=== PATIENT | male | born 1955 | race Caucasian/White ===

== ENCOUNTER 2017-09-24 14:57 | Outpatient (CLI) | payer BC | END 2017-09-24 16:43 | disposition home or self-care (01) | LOC: DCC 14:57 | DX: L03.115 Cellulitis of right lower limb (principal); D64.9 Anemia, unspecified; N28.9 Disorder of kidney and ureter, unspecified; G62.9 Polyneuropathy, unspecified; E11.8 Type 2 diabetes mellitus with unspecified complications | CPT/HCPCS: G0463 ==

== ENCOUNTER → 2017-10-08 | Outpatient (CLI) | payer BC | END | disposition home or self-care (01) | LOC: DCC 14:20 | DX: L03.115 Cellulitis of right lower limb (principal); D64.9 Anemia, unspecified; N28.9 Disorder of kidney and ureter, unspecified; I10 Essential (primary) hypertension; G57.90 Unspecified mononeuropathy of unspecified lower limb ==

== ENCOUNTER 2017-10-17 16:05 | Emergency (ER) | payer BC ==
[2017-10-17] MEDS: CLINDAMYCIN 900 MG/D5W (PMX) 50 ML IVPB (18:21)
== END 2017-10-17 19:12 | disposition home or self-care (01) ==
LOC: FTE 16:05
DX: Z48.01 Encounter for change or removal of surgical wound dressing (principal)
CPT/HCPCS: 96374; 99284-25

== ENCOUNTER 2017-12-15 14:14 | Inpatient (IN) | payer BC ==
[2017-12-15 17:42] LABS: ADD MAN DIFF? NO
[2017-12-15 17:47] LABS: WHITE BLOOD COUNT 9.1 10^3/ul (4.8-10.8)
[2017-12-15 17:47] LABS: BASOPHILS % 0.4 % (0.0-2.0); EOSINOPHILS # 0.1 10^3/ul (0.0-0.5); EOSINOPHILS % 1.3 % (0.0-7.0); HEMATOCRIT 44.3 % (42.0-52.0); HEMOGLOBIN 14.5 g/dl (14.0-18.0); LYMPHOCYTES # 1.8 10^3/ul (0.8-2.9); LYMPHOCYTES % 19.4 % (15.0-51.0); MEAN CORPUSCULAR HEMOGLOBIN 29.9 pg (29.0-33.0); MEAN CORPUSCULAR HGB CONC 32.7 g/dl (32.0-37.0); MEAN CORPUSCULAR VOLUME 91.3 fl (82.0-101.0); MEAN PLATELET VOLUME 9.5 fl (7.4-10.4); MONOCYTE # 0.8 10^3/ul (0.3-0.9); MONOCYTES % 8.4 % (0.0-11.0); NEUTROPHIL # 6.4 10^3/ul (1.6-7.5); NEUTROPHILS % 70.1 % (39.0-77.0); PLATELET COUNT 222 10^3/UL (140-415); RED BLOOD COUNT 4.85 10^6/ul (4.70-6.10); RED CELL DISTRIBUTION WIDTH 14.1 % (11.5-14.5)
[2017-12-15] MEDS: CEFEPIME 2GM/50 ML (PMX) 50 ML IVPB (17:55)
[2017-12-15] MEDS: SOD CHLORIDE 0.9% 1,000 ML IV (17:55)
[2017-12-15 18:06] LABS: INR 0.93; PROTIME 12.6 Sec (11.9-14.9)
[2017-12-15 18:07] LABS: PARTIAL THROMBOPLASTIN TIME 29.7 Sec (25.0-35.0)
[2017-12-15 18:10] LABS: LACTIC ACID 2.3 mmol/L (0.5-2.0)
[2017-12-15 18:12] LABS: ALANINE AMINOTRANSFERASE 21 IU/L (13-69); ALBUMIN 4.7 g/dl (3.3-4.9); ALBUMIN/GLOBULIN RATIO 1.27; ALKALINE PHOSPHATASE 94 IU/L (42-121); ANION GAP 15 (8-16); ASPARTATE AMINO TRANSFERASE 36 IU/L (15-46); BILIRUBIN,INDIRECT 0.3 mg/dl (0-1.1); BILIRUBIN,TOTAL 0.3 mg/dl (0.2-1.3); BLOOD UREA NITROGEN 18 mg/dl (7-20); C-REACTIVE PROTEIN 2.1 mg/dl (0.0-0.9); CALCIUM 9.8 mg/dl (8.4-10.2); CARBON DIOXIDE 30 mmol/L (21-31); CHLORIDE 96 mmol/L (97-110); CREATININE 1.04 mg/dl (0.61-1.24); GLUCOSE 109 mg/dl (70-220); POTASSIUM 3.8 mmol/L (3.5-5.1); SODIUM 137 mmol/L (135-144); TOTAL PROTEIN 8.4 g/dl (6.1-8.1)
[2017-12-15] MEDS: VANCOMYCIN 1 GM (PMX) 250 ML IVPB (18:33)
[2017-12-15 18:57] LABS: ERYTHROCYTE SEDIMENTATION RATE 15 mm/Hr (0-20)
[2017-12-15] MEDS: morphine 4 MG/ML VIAL IV (19:14)
[2017-12-15] MEDS: ONDANSETRON 4 MG INJ IV (19:14)
[2017-12-15] MEDS ORDERED: ONDANSETRON 4 MG INJ IV (19:30)
[2017-12-15] MEDS ORDERED: NACL 0.9% 3 ML SYG IV (19:30)
[2017-12-15] MEDS ORDERED: ACETAMINOPHEN 325 MG TAB PO (19:30)
[2017-12-15] MEDS: ZOLPIDEM 5 MG TAB PO (22:14)
[2017-12-15] MEDS: morphine 2 MG INJ IV (23:13)
[2017-12-15 23:42] LABS: LACTIC ACID 1.2 mmol/L (0.5-2.0)
[2017-12-16] MEDS: morphine 2 MG INJ IV ×4 (03:13→18:25)
[2017-12-16 08:37] LABS: ADD MAN DIFF? NO
[2017-12-16 08:40] LABS: WHITE BLOOD COUNT 7.8 10^3/ul (4.8-10.8)
[2017-12-16 08:40] LABS: BASOPHILS % 0.5 % (0.0-2.0); EOSINOPHILS # 0.2 10^3/ul (0.0-0.5); EOSINOPHILS % 2.1 % (0.0-7.0); HEMATOCRIT 43.8 % (42.0-52.0); HEMOGLOBIN 14.3 g/dl (14.0-18.0); LYMPHOCYTES # 1.7 10^3/ul (0.8-2.9); MEAN CORPUSCULAR HEMOGLOBIN 30.2 pg (29.0-33.0); MEAN CORPUSCULAR HGB CONC 32.6 g/dl (32.0-37.0); MEAN CORPUSCULAR VOLUME 92.6 fl (82.0-101.0); MEAN PLATELET VOLUME 9.7 fl (7.4-10.4); MONOCYTE # 0.7 10^3/ul (0.3-0.9); MONOCYTES % 8.4 % (0.0-11.0); NEUTROPHIL # 5.2 10^3/ul (1.6-7.5); NEUTROPHILS % 66.4 % (39.0-77.0); PLATELET COUNT 216 10^3/UL (140-415); RED BLOOD COUNT 4.73 10^6/ul (4.70-6.10); RED CELL DISTRIBUTION WIDTH 13.9 % (11.5-14.5)
[2017-12-16 09:16] LABS: LACTIC ACID 1.1 mmol/L (0.5-2.0)
[2017-12-16 09:26] LABS: HEMOGLOBIN A1C 5.6 % (0-5.9)
[2017-12-16] MEDS ORDERED: VANCOMYCIN IV PER PHARMACY XX (15:00)
[2017-12-16] MEDS: PIPER-TAZO 3.375 GM IV (PMX) 100 ML IVPB ×2 (16:59→22:43)
[2017-12-16] MEDS ORDERED: PIPER-TAZO 3.375 GM IV (PMX) 100 ML IVPB (18:00)
[2017-12-16] MEDS: VANCOMYCIN 1.5 GM in SOD CHLORIDE 0.9% 250 ML IVPB (18:28)
[2017-12-16] MEDS: ZOLPIDEM 5 MG TAB PO (20:13)
[2017-12-17] MEDS: morphine 2 MG INJ IV ×2 (03:00→12:04)
[2017-12-17] MEDS: PIPER-TAZO 3.375 GM IV (PMX) 100 ML IVPB ×2 (06:06→13:43)
[2017-12-17] MEDS: VANCOMYCIN 1.25 GM in SOD CHLORIDE 0.9% 250 ML IVPB (06:47)
[2017-12-17 07:40] LABS: CREATININE 1.03 mg/dl (0.61-1.24)
[2017-12-17 07:40] LABS: BLOOD UREA NITROGEN 14 mg/dl (7-20)
[2017-12-17] MEDS: HYDROCODONE/APAP (5/325) TAB PO (13:42)
[2017-12-17] MEDS ORDERED: morphine LIQ (10 MG/5 ML) CUP PO (14:30)
== END 2017-12-17 15:25 | disposition home or self-care (01) | DRG 593 ==
LOC: E/R 14:14 → 2NE 19:09
DX: L97.519 Non-pressure chronic ulcer of other part of right foot with unspecified severity (principal); L02.611 Cutaneous abscess of right foot; G60.9 Hereditary and idiopathic neuropathy, unspecified; M19.071 Primary osteoarthritis, right ankle and foot
CPT/HCPCS: 36415; 73630; 73718; 80053; 82565; 83036; 83605; 84520; 85025; 85610; 85651; 85730; 86140; 87040; 93005; 96374; 96375; 99285-25

== ENCOUNTER 2018-02-14 14:49 | Day surgery (SDC) | payer BC ==
[~2018-02-14 14:49] MED LIST: CEFAZOLIN 1 GM INJ
[2018-02-14] MEDS ORDERED: ONDANSETRON 4 MG INJ (16:50)
[2018-02-14] MEDS ORDERED: PROPOFOL 20 ML (16:50)
[2018-02-14] MEDS ORDERED: FENTAnyl 50 MCG/ML VIAL ×2 (16:50→18:17)
[2018-02-14] MEDS ORDERED: MIDAZOLAM 1 MG/ML 2 ML INJ (16:50)
[2018-02-14] MEDS ORDERED: ACETAMINOPHEN 1000MG/100ML IV 100 ML (16:50)
[2018-02-14] MEDS ORDERED: METOCLOPRAMIDE 10 MG INJ (16:50)
[2018-02-14] MEDS ORDERED: KETOROLAC 30 MG INJ (16:50)
[2018-02-14] MEDS: CEFAZOLIN SODIUM 2GM/D5W 50 X1 IVPB (17:01)
[2018-02-14] MEDS: BUPIVACAINE 0.5% (SDV) 30 ML INJ (17:24)
[2018-02-14] MEDS: POLYMYXIN/BACITRACIN 1L IRRIG (17:24)
[2018-02-14] MEDS: FENTAnyl 50 MCG/ML VIAL IV (18:21)
[2018-02-14] MEDS ORDERED: ONDANSETRON 4 MG INJ IV (18:30)
[2018-02-14] MEDS ORDERED: HYDROmorphONE 1 MG/5 ML IV SYRINGE IV ×2 (18:30)
[2018-02-14] MEDS ORDERED: FENTAnyl 50 MCG/ML VIAL IV (18:30)
[2018-02-14] MEDS ORDERED: hydrALAzine 20 MG INJ IV (20:00)
== END 2018-02-14 19:12 | disposition home or self-care (01) ==
LOC: SDS 14:49
DX: L90.5 Scar conditions and fibrosis of skin (principal); L97.519 Non-pressure chronic ulcer of other part of right foot with unspecified severity
CPT/HCPCS: 11426; 88307

== ENCOUNTER 2018-02-15 18:57 | Emergency (ER) | payer SELFPAY, BC | END 2018-02-15 19:50 | disposition left against medical advice (07) | LOC: FTE 19:50 | DX: Z53.21 Procedure and treatment not carried out due to patient leaving prior to being seen by health care provider (principal) ==

== ENCOUNTER 2018-03-08 14:08 | Day surgery (SDC) | payer BC ==
[2018-03-08 15:18] LABS: ADD MAN DIFF? NO
[2018-03-08 15:20] LABS: BASOPHILS % 0.4 % (0.0-2.0); EOSINOPHILS # 0.1 10^3/ul (0.0-0.5); EOSINOPHILS % 0.8 % (0.0-7.0); HEMATOCRIT 42.5 % (42.0-52.0); HEMOGLOBIN 14.4 g/dl (14.0-18.0); LYMPHOCYTES # 1.7 10^3/ul (0.8-2.9); LYMPHOCYTES % 15.1 % (15.0-51.0); MEAN CORPUSCULAR HEMOGLOBIN 31.1 pg (29.0-33.0); MEAN CORPUSCULAR HGB CONC 33.9 g/dl (32.0-37.0); MEAN CORPUSCULAR VOLUME 91.8 fl (82.0-101.0); MEAN PLATELET VOLUME 9.4 fl (7.4-10.4); MONOCYTE # 0.8 10^3/ul (0.3-0.9); MONOCYTES % 7.2 % (0.0-11.0); NEUTROPHIL # 8.4 10^3/ul (1.6-7.5); PLATELET COUNT 250 10^3/UL (140-415); RED BLOOD COUNT 4.63 10^6/ul (4.70-6.10); RED CELL DISTRIBUTION WIDTH 12.9 % (11.5-14.5)
[2018-03-08 15:20] LABS: WHITE BLOOD COUNT 11.1 10^3/ul (4.8-10.8)
[2018-03-08 15:26] LABS: ADD UMIC NO; UR ASCORBIC ACID NEGATIVE (NEGATIVE); UR BILIRUBIN (Dip) NEGATIVE (NEGATIVE); UR BLOOD (Dip) NEGATIVE (NEGATIVE); UR CLARITY CLEAR (CLEAR); UR COLOR YELLOW (YELLOW); UR GLUCOSE (Dip) NEGATIVE (NEGATIVE); UR KETONES (Dip) NEGATIVE (NEGATIVE); UR LEUKOCYTE ESTERASE (Dip) NEGATIVE Leu/ul (NEGATIVE); UR NITRITE (Dip) NEGATIVE (NEGATIVE); UR SPECIFIC GRAVITY (Dip) 1.017 (1.003-1.030); UR TOTAL PROTEIN (Dip) NEGATIVE (NEGATIVE); UR UROBILINOGEN (Dip) NEGATIVE (NEGATIVE)
[2018-03-08 15:42] LABS: INR 0.95; PROTIME 12.8 Sec (11.9-14.9)
[2018-03-08 15:43] LABS: PARTIAL THROMBOPLASTIN TIME 29.4 Sec (23.0-35.0)
[2018-03-08 15:44] LABS: ANION GAP 10 (5-13); BLOOD UREA NITROGEN 16 mg/dl (7-20); CALCIUM 9.5 mg/dl (8.4-10.2); CARBON DIOXIDE 30 mmol/L (21-31); CHLORIDE 97 mmol/L (97-110); CREATININE 0.94 mg/dl (0.61-1.24); Estimated GFR > 60 mL/min (>60); GLUCOSE 113 mg/dl (70-220); POTASSIUM 3.9 mmol/L (3.5-5.1); SODIUM 137 mmol/L (135-144)
[2018-03-08] MEDS ORDERED: ONDANSETRON 4 MG INJ (16:24)
[2018-03-08] MEDS ORDERED: MIDAZOLAM 1 MG/ML 2 ML INJ (16:24)
[2018-03-08] MEDS ORDERED: FENTAnyl 50 MCG/ML VIAL (16:24)
[2018-03-08] MEDS ORDERED: PROPOFOL 20 ML (16:24)
[2018-03-08] MEDS ORDERED: KETOROLAC 30 MG INJ (16:24)
[2018-03-08] MEDS ORDERED: LABETALOL HCL 20MG INJ IV (16:30)
[2018-03-08] MEDS ORDERED: HYDROmorphONE 1 MG/5 ML IV SYRINGE IV ×3 (16:30)
[2018-03-08] MEDS ORDERED: TRIMETHOBENZAMIDE 100 MG/ML VIAL IM (16:30)
[2018-03-08] MEDS ORDERED: MEPERIDINE 25 MG INJ IV (16:30)
[2018-03-08] MEDS ORDERED: CEFAZOLIN 2 GM/50 ML (PMX) 50 ML IVPB (16:30)
[2018-03-08] MEDS ORDERED: DIPHENHYDRAMINE 50 MG INJ IV (16:30)
[2018-03-08] MEDS ORDERED: FENTAnyl 50 MCG/ML VIAL IV ×2 (16:30)
[2018-03-08] MEDS ORDERED: EPHEDrine SULFATE 50 MG/5 ML SYG IV (16:30)
[2018-03-08] MEDS ORDERED: hydrALAzine 20 MG INJ IV (16:30)
[2018-03-08] MEDS ORDERED: ALBUTEROL 0.083% (NEB) 2.5 MG/3 ML AMP HHN (16:30)
[2018-03-08] MEDS ORDERED: MIDAZOLAM 1 MG/ML 2 ML INJ IV (16:30)
[2018-03-08] MEDS ORDERED: IPRATROPIUM (NEB) 0.5 MG/2.5 ML AMP HHN (16:30)
[2018-03-08] MEDS ORDERED: OXYCODONE/ACETAMINOPHEN (5/325) TAB PO (16:30)
[2018-03-08] MEDS ORDERED: KETAMINE (50 MG/ML) 10 ML VIAL (16:51)
[2018-03-08] MEDS: BUPIVACAINE 0.5% (SDV) 30 ML INJ (16:55)
[2018-03-08] MEDS: LIDOCAINE 2% (MDV) 20 ML INJ (16:55)
[2018-03-08] MEDS: POLYMYXIN/BACITRACIN 1L IRRIG (16:55)
[2018-03-08] MEDS ORDERED: hydrALAzine 20 MG INJ (17:08)
[2018-03-08] MEDS: OXYCODONE/ACETAMINOPHEN (5/325) TAB PO (18:10)
== END 2018-03-08 18:38 | disposition home or self-care (01) ==
LOC: SDS 14:08
DX: T81.30XD Disruption of wound, unspecified, subsequent encounter (principal); L97.519 Non-pressure chronic ulcer of other part of right foot with unspecified severity; Y83.9 Surgical procedure, unspecified as the cause of abnormal reaction of the patient, or of later complication, without mention of misadventure at the time of the procedure; I10 Essential (primary) hypertension; E11.40 Type 2 diabetes mellitus with diabetic neuropathy, unspecified
CPT/HCPCS: 11042; 80048; 81003; 85025; 85610; 85730; 87070; 87075; 87102; 88304; 93005

== ENCOUNTER 2018-04-14 14:23 | Inpatient (IN) | payer BC ==
[~2018-04-14 14:23] MED LIST changes: -CEFAZOLIN 1 GM INJ; +VANCOMYCIN 1.25 GM in SOD CHLORIDE 0.9% 250 ML IVPB
[2018-04-14 15:02] LABS: ADD MAN DIFF? NO
[2018-04-14] MEDS: HYDROmorphONE 1 MG/ML SYG IV (15:05)
[2018-04-14] MEDS: ONDANSETRON 4 MG INJ IV (15:05)
[2018-04-14] MEDS: PIPER-TAZO 3.375 GM IV (PMX) 100 ML IVPB ×2 (15:05→20:04)
[2018-04-14] MEDS: SODIUM CHLORIDE 0.9% 1L BAG IV* (15:06)
[2018-04-14 15:18] LABS: BASOPHILS % 0.4 % (0.0-2.0); EOSINOPHILS # 0.2 10^3/ul (0.0-0.5); EOSINOPHILS % 1.9 % (0.0-7.0); HEMATOCRIT 40.8 % (42.0-52.0); HEMOGLOBIN 13.2 g/dl (14.0-18.0); LYMPHOCYTES # 1.6 10^3/ul (0.8-2.9); LYMPHOCYTES % 17.4 % (15.0-51.0); MEAN CORPUSCULAR HEMOGLOBIN 30.5 pg (29.0-33.0); MEAN CORPUSCULAR HGB CONC 32.4 g/dl (32.0-37.0); MEAN CORPUSCULAR VOLUME 94.2 fl (82.0-101.0); MEAN PLATELET VOLUME 9.1 fl (7.4-10.4); MONOCYTE # 0.5 10^3/ul (0.3-0.9); MONOCYTES % 5.6 % (0.0-11.0); NEUTROPHIL # 6.8 10^3/ul (1.6-7.5); NEUTROPHILS % 74.2 % (39.0-77.0); PLATELET COUNT 223 10^3/UL (140-415); RED BLOOD COUNT 4.33 10^6/ul (4.70-6.10); RED CELL DISTRIBUTION WIDTH 12.9 % (11.5-14.5)
[2018-04-14 15:18] LABS: WHITE BLOOD COUNT 9.1 10^3/ul (4.8-10.8)
[2018-04-14 15:27] LABS: ANION GAP 10 (5-13); BLOOD UREA NITROGEN 16 mg/dl (7-20); CALCIUM 9.4 mg/dl (8.4-10.2); CARBON DIOXIDE 32 mmol/L (21-31); CHLORIDE 97 mmol/L (97-110); CREATININE 0.89 mg/dl (0.61-1.24); Estimated GFR > 60 mL/min (>60); GLUCOSE 121 mg/dl (70-220); POTASSIUM 3.9 mmol/L (3.5-5.1); SODIUM 139 mmol/L (135-144)
[2018-04-14 15:29] LABS: LACTIC ACID 2.7 mmol/L (0.5-2.0)
[2018-04-14 15:35] LABS: INR 1.02; PROTIME 13.5 Sec (11.9-14.9); PT RATIO 1.1
[2018-04-14 15:36] LABS: TROPONIN-I < 0.012 ng/ml (0.000-0.120)
[2018-04-14] MEDS ORDERED: NACL 0.9% 3 ML SYG IV (16:00)
[2018-04-14] MEDS ORDERED: ONDANSETRON 4 MG INJ IV (16:00)
[2018-04-14] MEDS ORDERED: VANCOMYCIN IV PER PHARMACY XX (16:00)
[2018-04-14] MEDS ORDERED: ACETAMINOPHEN 325 MG TAB PO (16:00)
[2018-04-14] MEDS: VANCOMYCIN 1 GM (PMX) 250 ML IVPB (16:13)
[2018-04-14] MEDS: VANCOMYCIN 1 GM in 250 ML IVPB ×2 (17:16→18:46)
[2018-04-14] MEDS: SOD CHLORIDE 0.45% 1,000 ML IV (17:18)
[2018-04-14 17:23] LABS: LACTIC ACID 1.1 mmol/L (0.5-2.0)
[2018-04-14] MEDS ORDERED: VANCOMYCIN 1.25 GM in SOD CHLORIDE 0.9% 250 ML IVPB (17:30)
[2018-04-14] MEDS: morphine 2 MG INJ IV (18:46)
[2018-04-14] MEDS: ZOLPIDEM 5 MG TAB PO (20:01)
[2018-04-15] MEDS: PIPER-TAZO 3.375 GM IV (PMX) 100 ML IVPB ×4 (00:23→17:56)
[2018-04-15] MEDS: morphine 2 MG INJ IV ×5 (00:23→18:30)
[2018-04-15] MEDS: SOD CHLORIDE 0.45% 1,000 ML IV ×3 (02:30→22:30)
[2018-04-15] MEDS: VANCOMYCIN 1.25 GM in SOD CHLORIDE 0.9% 250 ML IVPB ×2 (04:01→16:30)
[2018-04-15] MEDS: AMLODIPINE 2.5 MG TAB PO (09:24)
[2018-04-15] MEDS: FUROSEMIDE 40 MG TAB PO (10:09)
[2018-04-15] MEDS ORDERED: BISACODYL (EC) 5 MG TAB PO (15:00)
[2018-04-15] MEDS ORDERED: VANCOMYCIN 1.25 GM in SOD CHLORIDE 0.9% 250 ML IVPB (16:00)
[2018-04-15 16:15] LABS: HEMOGLOBIN A1C 5.4 % (0-5.9)
[2018-04-15] MEDS: BISACODYL (EC) 5 MG TAB PO (16:33)
[2018-04-15] MEDS: ZOLPIDEM 5 MG TAB PO (20:26)
[2018-04-16] MEDS: PIPER-TAZO 3.375 GM IV (PMX) 100 ML IVPB ×4 (00:02→20:03)
[2018-04-16] MEDS: morphine 2 MG INJ IV ×4 (00:07→18:21)
[2018-04-16 04:04] LABS: VANCOMYCIN,TROUGH 11.4 ug/ml (10.0-20.0)
[2018-04-16] MEDS: VANCOMYCIN 1.25 GM in SOD CHLORIDE 0.9% 250 ML IVPB ×2 (04:52→16:06)
[2018-04-16] MEDS: FUROSEMIDE 40 MG TAB PO (06:38)
[2018-04-16] MEDS: SOD CHLORIDE 0.45% 1,000 ML IV ×2 (08:30→18:30)
[2018-04-16] MEDS: AMLODIPINE 2.5 MG TAB PO ×2 (08:42→22:01)
[2018-04-16] MEDS: HYDROCODONE/APAP (5/325) TAB PO (19:15)
[2018-04-16] MEDS ORDERED: HYDROCODONE/APAP (10/325) TAB PO (20:00)
[2018-04-16] MEDS: ZOLPIDEM 5 MG TAB PO (21:10)
[2018-04-17] MEDS: PIPER-TAZO 3.375 GM IV (PMX) 100 ML IVPB ×4 (00:26→20:48)
[2018-04-17] MEDS: morphine 2 MG INJ IV ×4 (00:27→20:55)
[2018-04-17] MEDS: VANCOMYCIN 1.25 GM in SOD CHLORIDE 0.9% 250 ML IVPB ×2 (03:34→16:40)
[2018-04-17] MEDS: HYDROCODONE/APAP (10/325) TAB PO ×4 (03:34→18:59)
[2018-04-17] MEDS: SOD CHLORIDE 0.45% 1,000 ML IV ×2 (04:30→14:30)
[2018-04-17] MEDS: FUROSEMIDE 40 MG TAB PO (06:12)
[2018-04-17 06:56] LABS: BLOOD UREA NITROGEN 17 mg/dl (7-20)
[2018-04-17 06:56] LABS: CREATININE 0.97 mg/dl (0.61-1.24)
[2018-04-17] MEDS: AMLODIPINE 2.5 MG TAB PO (08:24)
[2018-04-17] MEDS: DOCUSATE SODIUM 100 MG CAP PO (20:54)
[2018-04-17] MEDS: ZOLPIDEM 5 MG TAB PO (20:54)
[2018-04-17] MEDS ORDERED: PIPER-TAZO 3.375 GM IV (PMX) 100 ML IVPB (21:00)
[2018-04-18] MEDS: PIPER-TAZO 3.375 GM IV (PMX) 100 ML IVPB ×5 (01:00→23:50)
[2018-04-18] MEDS: VANCOMYCIN 1.25 GM in SOD CHLORIDE 0.9% 250 ML IVPB ×2 (03:23→16:57)
[2018-04-18] MEDS: HYDROCODONE/APAP (10/325) TAB PO ×4 (03:29→23:40)
[2018-04-18] MEDS: FUROSEMIDE 40 MG TAB PO (06:15)
[2018-04-18] MEDS: morphine 2 MG INJ IV ×4 (06:16→21:12)
[2018-04-18 07:42] LABS: BLOOD UREA NITROGEN 18 mg/dl (7-20)
[2018-04-18] MEDS: AMLODIPINE 2.5 MG TAB PO (08:45)
[2018-04-18] MEDS: LIDOCAINE 1% (MPF) 5 ML VIAL SC (14:00)
[2018-04-18] MEDS: ZOLPIDEM 5 MG TAB PO (20:22)
[2018-04-19] MEDS: morphine 2 MG INJ IV ×4 (01:12→20:03)
[2018-04-19] MEDS: VANCOMYCIN 1.25 GM in SOD CHLORIDE 0.9% 250 ML IVPB (04:12)
[2018-04-19] MEDS: HYDROCODONE/APAP (10/325) TAB PO ×3 (04:14→20:55)
[2018-04-19 06:26] LABS: BLOOD UREA NITROGEN 17 mg/dl (7-20)
[2018-04-19 06:26] LABS: CREATININE 0.94 mg/dl (0.61-1.24)
[2018-04-19] MEDS: PIPER-TAZO 3.375 GM IV (PMX) 100 ML IVPB (06:53)
[2018-04-19] MEDS: FUROSEMIDE 40 MG TAB PO (06:54)
[2018-04-19] MEDS: AMLODIPINE 2.5 MG TAB PO (08:40)
[2018-04-19] MEDS: CEFEPIME 1GM/50 ML (PMX) 50 ML IVPB ×2 (14:04→22:22)
[2018-04-19] MEDS: CIPROFLOXACIN 500 MG TAB PO ×2 (14:04→22:22)
[2018-04-19] MEDS: DAPTOMYCIN 650 MG in SOD CHLORIDE 0.9% 100 ML IVPB (15:48)
[2018-04-19] MEDS: ZOLPIDEM 5 MG TAB PO (20:48)
[2018-04-19] MEDS ORDERED: hydrALAzine 20 MG INJ IV (21:30)
[2018-04-20] MEDS: morphine 2 MG INJ IV ×2 (02:06→11:26)
[2018-04-20] MEDS: HYDROCODONE/APAP (10/325) TAB PO ×2 (05:07→13:32)
[2018-04-20] MEDS: CIPROFLOXACIN 500 MG TAB PO (05:07)
[2018-04-20] MEDS: FUROSEMIDE 40 MG TAB PO (05:39)
[2018-04-20 06:33] LABS: CREATINE KINASE 99 IU/L (23-200)
[2018-04-20] MEDS: CEFEPIME 1GM/50 ML (PMX) 50 ML IVPB (09:06)
[2018-04-20] MEDS: AMLODIPINE 2.5 MG TAB PO (09:11)
== END 2018-04-20 14:20 | disposition home or self-care (01) | DRG 872 ==
LOC: E/R 14:23 → 2NE 15:57
PROC: 02HV33Z Insertion of Infusion Device into Superior Vena Cava, Percutaneous Approach (ICD-10-PCS; principal; 2018-04-18)
DX: A41.9 Sepsis, unspecified organism (principal); L03.115 Cellulitis of right lower limb; E87.2 Acidosis; L97.516 Non-pressure chronic ulcer of other part of right foot with bone involvement without evidence of necrosis; G60.9 Hereditary and idiopathic neuropathy, unspecified; E66.9 Obesity, unspecified; Z68.31 Body mass index [BMI] 31.0-31.9, adult; I10 Essential (primary) hypertension; L08.89 Other specified local infections of the skin and subcutaneous tissue; B96.5 Pseudomonas (aeruginosa) (mallei) (pseudomallei) as the cause of diseases classified elsewhere; B95.2 Enterococcus as the cause of diseases classified elsewhere; B96.89 Other specified bacterial agents as the cause of diseases classified elsewhere; Z91.19 Patient's noncompliance with other medical treatment and regimen
CPT/HCPCS: 36415; 36569; 71045; 73630; 76937; 80048; 80202; 82550; 82565; 83036; 83605; 84484; 84520; 85025; 85610; 85730; 87040; 87070; 93005; 96365; 96375; 99291-25